=== PATIENT | female | born 1965 | race Asian ===

== ENCOUNTER 2018-04-03 14:46 | Outpatient (CLI) | payer OTHER | END 2018-04-03 14:47 | disposition home or self-care (01) | LOC: CTENTCT 14:46 | PROVIDERS: ATTEND Otolaryngology Plastic Surgery within the Head & Neck | DX: J32.9 Chronic sinusitis, unspecified (principal) | CPT/HCPCS: 70486 ==

== ENCOUNTER 2019-10-13 05:55 | Outpatient (CLI) | payer OTHER ==
[2019-10-13 16:14] LABS: Hemoglobin 11.6 g/dL (12.0-16.0); Mean Corpuscular Hemoglobin 26.6 pg (27.0-31.0); Mean Corpuscular Volume 78.3 fL (78.0-98.0); Mean Platelet Volume 7.5 fL (7.4-10.4); Platelet Count 350 thou/uL (130-400); RBC Distribution Width 13.6 % (11.5-14.5); Red Blood Cell (RBC) Count 4.36 mill/uL (4.20-5.40); White Blood Cell (WBC) Count 9.6 thou/uL (4.8-10.8)
[2019-10-13 16:37] LABS: ALT (SGPT) 12 U/L (8-55); AST (SGOT) 13 U/L (5-34); Alkaline Phosphatase 60 U/L (40-110); Anion Gap 13 mmol/L (10-20); BUN (Urea Nitrogen) 12 mg/dL (9.8-20.1); Bilirubin, Total 0.2 mg/dL (0.2-1.2); Calc. Creatinine Clearance 0 mL/min (70-130); Calcium 9.2 mg/dL (7.8-10.44); Carbon Dioxide 22 mmol/L (22-29); Chloride 105 mmol/L (98-107); Estimated GFR-MDRD Greater than 90; Globulin 3.3 g/dL (2.4-3.5); Glucose 92 mg/dL (70-105); Potassium 3.9 mmol/L (3.5-5.1); Protein, Total 7.3 g/dL (6.0-8.3); Sodium 136 mmol/L (136-145)
== END 2019-10-13 05:56 | disposition home or self-care (01) ==
LOC: LABBT 05:55
PROVIDERS: ATTEND Student in an Organized Health Care Education/Training Program
DX: Z01.812 Encounter for preprocedural laboratory examination (principal); N92.0 Excessive and frequent menstruation with regular cycle
CPT/HCPCS: 80053; 85027

== ENCOUNTER 2019-10-20 10:09 | Outpatient (CLI) | payer OTHER | END 2019-10-20 10:10 | disposition home or self-care (01) | LOC: LABBT 10:09 | PROVIDERS: ATTEND Student in an Organized Health Care Education/Training Program | DX: Z01.818 Encounter for other preprocedural examination (principal); N92.0 Excessive and frequent menstruation with regular cycle | CPT/HCPCS: 93005; 93010 ==

== ENCOUNTER 2019-10-27 08:14 | Day surgery (SDC) | payer OTHER ==
[2019-10-13 16:00] VITALS: BMI 33.2
[2019-10-27] MEDS ORDERED: Rocuronium Bromide 10 MG/ML (10ML VIAL) ONE (09:41)
[2019-10-27] MEDS ORDERED: PROPOFOL 200 MG/20 ML VIAL ONE (09:41)
[2019-10-27] MEDS ORDERED: Dexamethasone 20 MG/5 ML VIAL ONE (09:41)
[2019-10-27] MEDS ORDERED: Ondansetron PF 4 MG/2 ML Vial ONE (09:41)
[2019-10-27] MEDS ORDERED: Lidocaine 1% PF 5 ML VIAL ONE (09:41)
[2019-10-27] MEDS ORDERED: Glycopyrrolate 0.2 MG/ML 5 ML SYRINGE ONE (09:41)
[2019-10-27] MEDS ORDERED: Fentanyl 100 MCG/2 ML VIAL ONE ×2 (09:41→11:14)
[2019-10-27] MEDS ORDERED: SUGAMMADEX SODIUM 200 MG/2 ML VIAL ONE (09:58)
[2019-10-27] MEDS ORDERED: Ketorolac Tromethamine 30 MG/ML VIAL ONE (11:31)
--- NOTE | 2019-10-28 09:28 | OP ---
DATE OF PROCEDURE: 10/27/2019 PREOPERATIVE DIAGNOSIS: Menorrhagia. POSTOPERATIVE DIAGNOSIS: Menorrhagia. PROCEDURE PERFORMED: Hysteroscopy, dilation and curettage and Nel endometrial ablation. CREDIT ADJUSTER SURGEON: None. SPECIMENS: Endometrial curettings. COMPLICATIONS: None. DRAINS: None. ESTIMATED BLOOD LOSS: 10 mL. FINDINGS: Uterus sounded to 10 cm, 5 cm cervix making a cavity length 5 cm. She had normal-appearing endometrium. No intrauterine masses or polyps. Bilateral tubal ostia were visualized and there was a fluid deficit of 180 mL during the case and following the ablation, there was good guerda to all the uterine teague. DESCRIPTION OF PROCEDURE: The patient was taken to the operating room, where general anesthesia was obtained without difficulty. The patient was prepped and draped in a sterile fashion in dorsal lithotomy position. A red rubber was performed prior to the procedure to drain the bladder. A speculum was placed in the vagina. The anterior lip of the cervix was grasped with single-tooth tenaculum. The uterus then sounded to 10 cm and the cervix was progressively dilated with Ga dilators. A 5-mm hysteroscope was then assembled and inserted into the uterus using normal saline as distention media. The above findings were noted. Photodocumentation was performed. The hysteroscope was removed and a sharp curettage was taken to the all uterine teague and specimen sent for final pathology. During the hysteroscopic portion of the exam, the cervical length was measured and found to be 5 cm. At that time, the Nel ablation device was assembled and the cavity length was set to 5 cm. The Nel was inserted into the uterus and the array was deployed. The cervical balloon was inflated and cavity check was performed and passed on the first try. Ablation was then performed for 120 seconds and the cervical balloon was deflated. The array was then collapsed and removed out of the patient. The hysteroscope was then inserted into the uterus and noting the good guerda to all uterine teague. This was then removed and the tenaculum removed off the cervix. Hemostasis was noted and all instruments removed out of the vagina. The patient tolerated the procedure well. Sponge, lap, and needle counts correct x2. The patient was taken to recovery room in stable condition. Job ID: [id number]
== END 2019-10-27 13:28 | disposition home or self-care (01) ==
LOC: SDC 08:14
PROVIDERS: ATTEND Student in an Organized Health Care Education/Training Program
PROC: 0UB98ZZ Excision of Uterus, Via Natural or Artificial Opening Endoscopic (ICD-10-PCS; principal; 2019-10-27)
PROC: 0UDB8ZZ Extraction of Endometrium, Via Natural or Artificial Opening Endoscopic (ICD-10-PCS; principal; 2019-10-27)
DX: N92.0 Excessive and frequent menstruation with regular cycle (principal); I10 Essential (primary) hypertension; I48.91 Unspecified atrial fibrillation; Z79.01 Long term (current) use of anticoagulants; Z79.899 Other long term (current) drug therapy
CPT/HCPCS: 36415; 86850; 86900; 86901; 88305; J1100; J1885; J2001; J2405; J2704; J3010

== ENCOUNTER 2023-10-24 13:12 | Outpatient (CLI) | payer OTHER | END 2023-10-24 13:13 | disposition home or self-care (01) | LOC: BICRAD 13:12 | PROVIDERS: ATTEND Family Medicine | DX: M25.552 Pain in left hip (principal); M54.50 Low back pain, unspecified; M47.816 Spondylosis without myelopathy or radiculopathy, lumbar region | CPT/HCPCS: 72100 ==

== ENCOUNTER 2024-05-21 10:48 | Outpatient (CLI) | payer OTHER | END 2024-05-21 10:49 | disposition home or self-care (01) | LOC: BICMAMMO 10:48 | PROVIDERS: ATTEND Family Medicine | DX: Z12.31 Encounter for screening mammogram for malignant neoplasm of breast (principal); N63.25 Unspecified lump in the left breast, overlapping quadrants; Z80.3 Family history of malignant neoplasm of breast | CPT/HCPCS: 77063; 77067 ==

== ENCOUNTER 2024-05-27 13:39 | Outpatient (CLI) | payer OTHER | END 2024-05-27 13:40 | disposition home or self-care (01) | LOC: BICULT 13:39 | PROVIDERS: ATTEND Family Medicine | DX: N63.25 Unspecified lump in the left breast, overlapping quadrants (principal) ==